=== PATIENT | male | born 1970 | race Hispanic/Latino ===

== ENCOUNTER 2021-04-21 09:32 | Emergency (ER) | payer SELFPAY ==
[~2021-04-21] VITALS: Ht 167.6 cm; Wt 67.0 kg
[~2021-04-21 09:32] MED LIST: BACTRIM DS1 TAB PO; BENADRYL25 M1 PO; CEPHALEXIN500 MG PO; MOTRIN800 MG PO
[2021-04-21 10:33] LABS: HEMOGLOBIN 13.9 g/dl (14.0-18.0); IMMATURE GRANULOCYTES 0.4 % (0.0-5.0); MEAN CELL VOLUME 93.9 fL CALC (80.0-100.0); MEAN CORPUSCULAR HGB 30.3 pG CALC (26.0-32.0); MEAN CORPUSCULAR HGB CONC 32.3 g/dL CAL (32.0-36.0); NEUT# 4.96 thou/uL (1.82-7.42); RED BLOOD COUNT 4.58 mill/uL (4.70-6.10); RED CELL DISTRI WIDTH 13.2 % (11.5-15.5)
[2021-04-21 10:51] LABS: ALBUMIN 4.2 g/dL (3.2-5.0); ALKALINE PHOSPHATASE 171 u/l (38-126); ANION GAP 17 (6-22 (CALC)); BILIRUBIN, TOTAL 0.9 mg/dL (0.0-1.4); BUN 7 mg/dL (9-20); BUN/CREATININE RATIO 15 (12-20 (CALC)); CARBON DIOXIDE 21 mmol/l (22-30); CHLORIDE 102 mmol/l (95-108); CREATININE 0.5 mg/dL (0.7-1.3); GFR > 60 ML/MIN (>=60 (CALC)); GFR FOR AFR.AMER. > 60 ML/MIN (>=60 (CALC)); POTASSIUM 3.9 mmol/l (3.5-5.1); SGOT/AST 99 u/l (17-59); SODIUM 136 mmol/l (137-146); TOTAL PROTEIN 9.9 g/dL (6.3-8.2)
[2021-04-21 11:03] LABS: MYOGLOBIN 22 ng/mL (0 - 121)
[2021-04-21 11:56] VITALS: BP 175/109
== END 2021-04-21 12:19 | disposition short-term general hospital (02) | DRG 194 ==
LOC: ED 09:32
PROVIDERS: Emergency Medicine
DX: J18.9 Pneumonia, unspecified organism (principal); J91.8 Pleural effusion in other conditions classified elsewhere; I10 Essential (primary) hypertension; Z20.822 Contact with and (suspected) exposure to COVID-19